=== PATIENT | female | born 1975 | race Caucasian/White ===

== ENCOUNTER 2019-12-07 08:54 | Emergency (ER) | payer OTHER ==
[2019-12-07 09:21] VITALS: BP 122/79
[2019-12-07 09:42] LABS: Influenza A Molecular Negative (Negative); Influenza B Molecular Negative (Negative)
--- NOTE | 2019-12-07 09:55 | UC ---
FLU HPI - HPI Summary HPI Summary: She started yesterday with fevers and chills. She has a sick child for couple of days also. - History of Current Complaint Chief Complaint: UCGeneralIllness Stated Complaint: FLU SYMPTOMS Time Seen by Provider: 12/07/19 09:01 Hx Obtained From: Patient Hx Last Menstrual Period: 11/23/19 ?: No Onset/Duration: Sudden Onset, Lasting Days Severity Currently: Moderate Severity Initially: Moderate Pain Intensity: 1 Associated Signs & Symptoms: Positive: Fever, Sore Throat, Nasal Congestion Related Hx: Possible Flu/Infectious Exposure - Allergy/Home Medications Allergies/Adverse Reactions: Allergies Allergy/AdvReac Type Severity Reaction Status Date / Time No Known Allergies Allergy Verified 12/07/19 09:16 Home Medications: Home Medications Amitriptyline TAB* [Elavil TAB*] 50 mg PO BEDTIME 09/26/19 [History Confirmed ] Norethindrone-E.estradiol-Iron [Lo Loestrin Fe 1-10 Tablet] 1 each PO DAILY [History Confirmed 12/07/19] PMH/Surg Hx/FS Hx/Imm Hx Previously Healthy: Yes - Surgical History Surgical History: Yes Surgery Procedure, Year, and Place: tonsilectomy as a child. thymus removed 2004 - Social History Alcohol Use: None Substance Use Type: None Smoking Status (MU): Never Smoked Tobacco Review of Systems All Other Systems Reviewed And Are Negative: Yes Constitutional: Positive: Fever, Chills Skin: Positive: Negative Eyes: Positive: Negative ENT: Positive: Sore Throat, Nasal Discharge Respiratory: Positive: Negative Cardiovascular: Positive: Negative Gastrointestinal: Positive: Negative Neurological/Mental Status: Positive: Negative Physical Exam - Summary Physical Exam Summary: She is nontoxic in appearance with stable vital signs Triage Information Reviewed: Yes Appearance: Well-Appearing Vital Signs: Initial Vital Signs Temp 100.6 F 12/07/19 09:16 Pulse 104 12/07/19 09:16 Resp 20 12/07/19 09:16 BP 122/79 12/07/19 09:16 Pulse Ox 99 12/07/19 09:16 Vital Signs Reviewed: Yes ENT Exam: Normal Neck exam: Normal Respiratory Exam: Normal Cardiovascular Exam: Normal Abdominal Exam: Normal Flu Course/Dx - Course Course Of Treatment: She is negative influenza swab here but her daughters positive. Patient has only had symptoms for less than a day and I am going to treat - Differential Dx/Diagnosis Provider Diagnosis: Influenza A Discharge ED - Sign-Out/Discharge Documenting (check all that apply): Patient Departure All imaging exams completed and their final reports reviewed: No Studies - Discharge Plan Condition: Stable Disposition: HOME Patient Education Materials: Influenza (ED) Referrals: Dionne Sommer MD [Primary Care Provider] - - Billing Disposition and Condition Condition: STABLE Disposition: Home
== END 2019-12-07 10:09 | disposition home or self-care (01) ==
LOC: UCEAST 08:54
DX: J10.1 Influenza due to other identified influenza virus with other respiratory manifestations (principal)
CPT/HCPCS: 99212; G0463